=== PATIENT | male | born 1965 | race Hispanic/Latino ===

== ENCOUNTER 2018-08-08 19:32 | Emergency (ER) | payer OTHER ==
--- NOTE | 2018-08-08 20:54 | RAD REPORT ---
EXAM DESCRIPTION: RAD - Chest Pa And Lat (2 Views) - 08/08/2018 8:48 pm CLINICAL HISTORY: Cough;Congestion Chest pain. COMPARISON: No comparisons FINDINGS: The lungs are clear. The heart is upper limit of normal in size. No displaced fractures. IMPRESSION: No acute or concerning finding suspected.
--- NOTE | 2018-08-08 21:39 | EDPHYS ---
Physician Documentation [facility] Name: Babar Cheney Age: 53 yrs Sex: Male : 1965 Arrival Date: 08/08/2018 Time: 19:37 Bed 17 Private MD: ED Physician Geovanny Sosa HPI: 08/08 21:19 This 53 yrs old Male presents to ER via Ambulatory with complaints of Chest kb Congestion, Chest Pain. 21:19 The patient or guardian reports cough, that is intermittent, described as moderate, kb with no sputum, flu symptoms, arthralgias, low-grade fever, myalgias. Onset: The symptoms/episode began/occurred 1 week(s) ago. Severity of symptoms: At their worst the symptoms were mild, moderate, in the emergency department the symptoms are unchanged. Modifying factors: The symptoms are alleviated by nothing, the symptoms are aggravated by nothing. Associated signs and symptoms: Pertinent positives: chest pain, fever, rhinorrhea, sore throat, Pertinent negatives: diarrhea, ear ache, nausea, vomiting. The patient has not experienced similar symptoms in the past. The patient has been recently seen by a physician: the patient's primary care provider, with similar presenting complaints, and apparently given a diagnosis of throat infection, lab tests were done. Historical: - Allergies: 19:57 No Known Allergies; aa1 - Home Meds: 19:57 Metformin Oral [Active]; aa1 - PMHx: 19:57 Diabetes - NIDDM; aa1 - PSHx: 19:57 None; aa1 - Immunization history:: Flu vaccine is up to date. - Social history:: Smoking status: Patient/guardian denies using tobacco. - Ebola Screening: : Patient denies exposure to infectious person Patient denies travel to an Ebola-affected area in the 21 days before illness onset. ROS: 21:17 Neck: Negative for injury, pain, and swelling, Abdomen/GI: Negative for abdominal pain, kb nausea, vomiting, diarrhea, and constipation, Back: Negative for injury and pain, : Negative for injury, bleeding, discharge, and swelling, MS/Extremity: Negative for injury and deformity, Skin: Negative for injury, rash, and discoloration, Neuro: Negative for headache, weakness, numbness, tingling, and seizure. 21:17 Constitutional: Positive for body aches, chills, fatigue, fever, malaise, Negative for poor PO intake, weight loss. 21:17 ENT: Positive for sore throat. 21:17 Cardiovascular: Positive for chest pain, Negative for edema, orthopnea, palpitations, paroxysmal nocturnal dyspnea. 21:17 Respiratory: Positive for cough, Negative for dyspnea on exertion, hemoptysis, orthopnea, pleurisy, shortness of breath, sputum production, wheezing. Exam: 21:18 Constitutional: This is a well developed, well nourished patient who is awake, alert, kb and in no acute distress. Head/Face: Normocephalic, atraumatic. ENT: Nares patent. No nasal discharge, no septal abnormalities noted. Tympanic membranes are normal and external auditory canals are clear. Oropharynx with no redness, swelling, or masses, exudates, or evidence of obstruction, uvula midline. Mucous membranes moist. Neck: Trachea midline, no thyromegaly or masses palpated, and no cervical lymphadenopathy. Supple, full range of motion without nuchal rigidity, or vertebral point tenderness. No Meningismus. Chest/axilla: Normal chest wall appearance and motion. Nontender with no deformity. No lesions are appreciated. Cardiovascular: Regular rate and rhythm with a normal S1 and S2. No gallops, murmurs, or rubs. Normal PMI, no JVD. No pulse deficits. Respiratory: Lungs have equal breath sounds bilaterally, clear to auscultation and percussion. No rales, rhonchi or wheezes noted. No increased work of breathing, no retractions or nasal flaring. Abdomen/GI: Soft, non-tender, with normal bowel sounds. No distension or tympany. No guarding or rebound. No evidence of tenderness throughout. Skin: Warm, dry with normal turgor. Normal color with no rashes, no lesions, and no evidence of cellulitis. MS/ Extremity: Pulses equal, no cyanosis. Neurovascular intact. Full, normal range of motion. Neuro: Awake and alert, GCS 15, oriented to person, place, time, and situation. Cranial nerves II-XII grossly intact. Motor strength 5/5 in all extremities. Sensory grossly intact. Cerebellar exam normal. Normal gait. Vital Signs: 19:57 BP 133 / 88; Pulse 90; Resp 18; Temp 98.3; Pulse Ox 96% on R/A; Weight 99.79 kg; Height aa1 5 ft. 6 in. (167.64 cm); Pain 4/10; 22:09 BP 137 / 65; Pulse 92; Resp 18; Pulse Ox 97% ; aj1 19:57 Body Mass Index 35.51 (99.79 kg, 167.64 cm) aa1 MDM: 20:00 Patient medically screened. kb 21:16 Data reviewed: vital signs, nurses notes. Data interpreted: Pulse oximetry: on room air kb is 96 %. Interpretation: normal. Counseling: I had a detailed discussion with the patient and/or guardian regarding: the historical points, exam findings, and any diagnostic results supporting the discharge/admit diagnosis, lab results, radiology results, the need for outpatient follow up, a family practitioner, to return to the emergency department if symptoms worsen or persist or if there are any questions or concerns that arise at home. 08/08 20:22 Order name: Flu; Complete Time: 21:16 kb 08/08 20:22 Order name: Chest Pa And Lat (2 Views) XRAY; Complete Time: 21:01 kb 08/08 20:22 Order name: EKG; Complete Time: 20:23 kb 08/08 20:22 Order name: EKG - Nurse/Tech; Complete Time: 20:44 kb Administered Medications: No medications were administered Disposition: 08/09 06:31 Co-signature as Attending Physician, Geovanny Sosa MD I agree with the assessment and [facility] plan of care. Disposition: 08/08/18 21:38 Discharged to Home. Impression: Acute upper respiratory infection, unspecified. - Condition is Stable. - Discharge Instructions: Upper Respiratory Infection, Adult, [id number]. - Medication Reconciliation Form, Thank You Letter, Antibiotic Education, Prescription Opioid Use form. - Follow up: Emergency Department; When: As needed; Reason: Worsening of condition. Follow up: Private Physician; When: 2 - 3 days; Reason: Recheck today's complaints, Continuance of care, Re-evaluation by your physician. Signatures: Dispatcher [employer] Aida Cruz, SPORTS PHYSICAL THERAPIST-C SPORTS PHYSICAL THERAPIST-Sonya Martinez RN RN aj1 Suzi Chavez RN RN aa1 Geovanny Sosa MD MD cha Corrections: (The following items were deleted from the chart) 01/16 22:16 21:38 08/08/2018 21:38 Discharged to Home. Impression: Acute upper respiratory aj1 infection, unspecified. Condition is Stable. Forms are Medication Reconciliation Form, Thank You Letter, Antibiotic Education, Prescription Opioid Use. Follow up: Emergency Department; When: As needed; Reason: Worsening of condition. Follow up: Private Physician; When: 2 - 3 days; Reason: Recheck today's complaints, Continuance of care, Re-evaluation by your physician. kb
--- NOTE | 2018-08-08 21:39 | ER ---
Nurse's Notes [facility] Name: Babar Cheney Age: 53 yrs Sex: Male : 1965 Arrival Date: 08/08/2018 Time: 19:37 Bed 17 Private MD: Diagnosis: Acute upper respiratory infection, unspecified Presentation: 08/08 19:55 Presenting complaint: Patient states: he was diagnosed with a throat infection and was aa1 started on PCN 3 days ago but states he is still coughing and having body aches. States, "I need to find out if I have sepsis.". Transition of care: patient was not received from another setting of care. Onset of symptoms was August 03, 2018. Risk Assessment: Do you want to hurt yourself or someone else? Patient reports no desire to harm self or others. Initial Sepsis Screen: Does the patient meet any 2 criteria? No. Patient's initial sepsis screen is negative. Does the patient have a suspected source of infection? No. Patient's initial sepsis screen is negative. Care prior to arrival: None. 19:55 Method Of Arrival: Ambulatory aa1 19:55 Acuity: ALLISON 3 aa1 Triage Assessment: 19:57 General: Appears in no apparent distress. uncomfortable, Behavior is calm, cooperative, aa1 appropriate for age. Historical: - Allergies: 19:57 No Known Allergies; aa1 - Home Meds: 19:57 Metformin Oral [Active]; aa1 - PMHx: 19:57 Diabetes - NIDDM; aa1 - PSHx: 19:57 None; aa1 - Immunization history:: Flu vaccine is up to date. - Social history:: Smoking status: Patient/guardian denies using tobacco. - Ebola Screening: : Patient denies exposure to infectious person Patient denies travel to an Ebola-affected area in the 21 days before illness onset. Screenin:15 Abuse screen: Denies threats or abuse. Denies injuries from another. Nutritional aj1 screening: No deficits noted. Tuberculosis screening: No symptoms or risk factors identified. 22:09 Fall Risk None identified. aj1 Assessment: 20:15 General: Appears in no apparent distress. uncomfortable, Behavior is calm, cooperative, aj1 appropriate for age. Pain: Complains of pain in generalized body aches Pain does not radiate. Pain currently is 8 out of 10 on a pain scale. Pain began 2-3 days ago. Neuro: Level of Consciousness is awake, alert, obeys commands. Cardiovascular: Reports shortness of breath, chest pain, but states that the pain in his chest is not any worse than the pain in the rest of his body Heart tones S1 S2 present Patient's skin is warm and dry. Respiratory: Reports shortness of breath cough that is persistent Airway is patent Respiratory effort is even, unlabored, Respiratory pattern is regular, symmetrical, Breath sounds are clear bilaterally. GI: No signs and/or symptoms were reported involving the gastrointestinal system. : No signs and/or symptoms were reported regarding the genitourinary system. EENT: Reports nasal congestion nasal discharge. Derm: No signs and/or symptoms reported regarding the dermatologic system. Skin is pink, warm \\T\\ dry. normal. 21:15 Reassessment: Patient appears in no apparent distress at this time. No changes from aj1 previously documented assessment. Patient and/or family updated on plan of care and expected duration. Pain level reassessed. Patient is alert, oriented x 3, equal unlabored respirations, skin warm/dry/pink. 22:08 Reassessment: Patient appears in no apparent distress at this time. No changes from aj1 previously documented assessment. Patient and/or family updated on plan of care and expected duration. Pain level reassessed. Patient is alert, oriented x 3, equal unlabored respirations, skin warm/dry/pink. Vital Signs: 19:57 BP 133 / 88; Pulse 90; Resp 18; Temp 98.3; Pulse Ox 96% on R/A; Weight 99.79 kg; Height aa1 5 ft. 6 in. (167.64 cm); Pain 4/10; 22:09 BP 137 / 65; Pulse 92; Resp 18; Pulse Ox 97% ; aj1 19:57 Body Mass Index 35.51 (99.79 kg, 167.64 cm) aa1 ED Course: 19:37 Patient arrived in ED. es 19:56 Triage completed. aa1 19:57 Arm band placed on right wrist. aa1 20:00 Aida Cedeno FNP-C is PHCP. kb 20:00 Geovanny Sosa MD is Attending Physician. kb 20:13 Sonya Livingston RN is Primary Nurse. aj1 20:15 Patient has correct armband on for positive identification. Bed in low position. Call aj1 light in reach. Pulse ox on. NIBP on. 20:15 No provider procedures requiring assistance completed. Patient maintains SpO2 aj1 saturation greater than 95% on room air. 20:47 Chest Pa And Lat (2 Views) XRAY In Process Unspecified. EDMS 22:09 IV discontinued. aj1 Administered Medications: No medications were administered Outcome: 21:38 Discharge ordered by . jhony 22:10 Discharged to home ambulatory. aj1 22:10 Condition: good 22:10 Discharge instructions given to patient, Instructed on discharge instructions, follow up and referral plans. Demonstrated understanding of instructions, follow-up care. 22:16 Patient left the ED. aj1 Signatures: Dispatcher [employer] EDAida Torre, WELL SURVEYING ENGINEER-C WELL SURVEYING ENGINEER-Sonya Martinez, RN RN aj1 Suzi Chavez RN RN aa1 Queenie Quiñones
--- NOTE | 2018-08-09 08:16 | EKG ---
Test Date: 2018-08-08 Test Time: 20:36:46 Educational Recruiter: RUBI MEASUREMENT RESULTS: Intervals: Rate: 88 MN: 166 QRSD: 94 QT: 364 QTc: 440 [place]: P: 24 MN: 166 QRS: -45 T: 9 INTERPRETIVE STATEMENTS: Normal sinus rhythm Incomplete right bundle branch block Left anterior fascicular block Abnormal ECG No previous ECG available for comparison Electronically Signed On 08-09-18 08:09:06 SALES COUNSELOR by Josh Sandoval
== END 2018-08-08 22:16 | disposition home or self-care (01) ==
LOC: ER 19:32
DX: J06.9 Acute upper respiratory infection, unspecified (principal); I44.0 Atrioventricular block, first degree; I45.10 Unspecified right bundle-branch block; R94.31 Abnormal electrocardiogram [ECG] [EKG]; E11.9 Type 2 diabetes mellitus without complications; Z79.84 Long term (current) use of oral hypoglycemic drugs
CPT/HCPCS: 71046; 87804; 93005; 99284